=== PATIENT | female | born 1985 | race Caucasian/White ===

== ENCOUNTER 2018-11-05 06:00 | Inpatient (IN) | payer BC ==
[2018-10-31 12:37] VITALS: BMI 27.4
--- NOTE | 2018-11-02 12:30 | P.HPOB ---
History of Present Illness H&P Date: 11/02/18 Chief Complaint: Repeat C/S and tubal ligation This patient is a pleasant 33 yr old female who is presenting for repeat section and tubal ligation. is complicated by advanced maternal age, she has declined any genetic testing. She has been followed with growth ultrasounds and NSTs. Patient has had 2 previous c/s and desires repeat as well as permanent sterilization. Review of Systems Gastrointestinal: Reports heartburn Genitourinary: Reports Menstruation: Reports amenorrhea Past Medical History Past Medical History: No Reported History History of Any Multi-Drug Resistant Organisms: None Reported Past Surgical History: Adenoidectomy, Section, Tonsillectomy Additional Past Surgical History / Comment(s): COLONOSCOPY, LEEP of cervix. LIP SX X 4 TO REMOVE STRAWBERRY ARSLAN Past Anesthesia/Blood Transfusion Reactions: Postoperative Nausea & Vomiting (PONV) Past Psychological History: No Psychological Hx Reported Smoking Status: Never smoker Past Drug Use History: None Reported - Past Family History Mother Family Medical History: No Reported History Medications and Allergies Home Medications Medication Instructions Recorded Confirmed Type No Known Home Medications 10/31/18 10/31/18 History Allergies Allergy/AdvReac Type Severity Reaction Status Date / Time No Known Allergies Allergy Verified 10/31/18 12:34 Exam - OBG Physical Exam Abdomen: bowel sounds normal, no diffuse tenderness, no bruit present, no guarding noted, no hepatomegaly, no splenomegaly, no mass Vulva: both: normal Vagina: normal moisture, no discharge Cervix: no lesion (Cervix in the office is closed.), no discharge Uterus: enlarged (Fundal height is 40 cm.) Results labs: B positive, Rubella Immune, RPR and HIV non-reactive, Hep B negative, Glucola was normal. GBS was positive. Ultrasounds have been normal. Assessment and Plan Assessment: This is a pleasant 33 yr female 39 5/7 weeks gestation with previous section requesting repeat c/s and tubal ligation. I have discussed this surgery in detail including the fact that a tubal ligation is considered permanent. She understands the risks of surgery including: infection, bleeding, possible injury to bowel/bladder/vessels/ and or other organs. She understands the risk of PE/DVT. I discussed the failure rate of a tubal of <10/999 and 50% chance of ectopic if ever . All of the patients questions were answered and a written consent obtained. Plan is repeat section and bilateral partial salpingectomy. (1) 39 weeks gestation of Status: Acute Code(s): Z3A.39 - 39 WEEKS GESTATION OF SNOMED Code(s): 12617773 (2) Previous delivery affecting Status: Acute Code(s): O34.219 - MATERNAL CARE FOR UNSP TYPE SCAR FROM PREVIOUS DEL SNOMED Code(s): 120475772 (3) Elderly multigravida Status: Acute Code(s): O09.529 - SUPERVISION OF ELDERLY MULTIGRAVIDA, UNSPECIFIED TRIMESTER SNOMED Code(s): 844430530 (4) Group B streptococcal carriage complicating Status: Acute Code(s): O99.820 - STREPTOCOCCUS B CARRIER STATE COMPLICATING SNOMED Code(s): 335019502460338 (5) Family planning Status: Acute Code(s): Z30.09 - ENCOUNTER FOR OTH GENERAL CNSL AND ADVICE ON CONTRACEPTION SNOMED Code(s): 575856991
[2018-11-05] MEDS ORDERED: CITRIC ACID-SODIUM CITRATE 15 ML CUP PO ONE (06:10)
[2018-11-05] MEDS ORDERED: LACTATED RINGERS 1,000 ML IV SCH (06:10)
[2018-11-05] MEDS ORDERED: LACTATED RINGERS 1,000 ML IV ONE (06:10)
[2018-11-05 06:36] LABS: Basophils % (A) 0 %; Eosinophils # (A) 0.2 k/uL (0-0.7); Eosinophils % (A) 3 %; HCT 30.9 % (34.0-46.0); HGB 9.9 gm/dL (11.4-16.0); Hypochromasia Slight; Lymphocytes % (A) 26 %; MCH 25.9 pg (25.0-35.0); MCHC 31.9 g/dL (31.0-37.0); MCV 81.2 fL (80.0-100.0); Mean Platelet Volume 8.2; Monocytes # (A) 0.5 k/uL (0-1.0); Monocytes % (A) 7 %; Neutrophils # (A) 4.8 k/uL (1.3-7.7); Neutrophils % (A) 62 %; Platelet Count 294 k/uL (150-450); RBC 3.81 m/uL (3.80-5.40); WBC 7.7 k/uL (3.8-10.6)
[2018-11-05] MEDS ORDERED: ceFAZolin IN SWFI 2 GM/20 ML SYRINGE IVP ONE (07:16)
[2018-11-05] MEDS ORDERED: MORPHINE SULFATE (PF) 0.3 MG/0.3 ML SYR ONE (07:48)
[2018-11-05] MEDS ORDERED: NALBUPHINE 10 MG/ML (1 ML AMP) ONE (07:48)
[2018-11-05] MEDS ORDERED: DEXAMETHASONE SOD PHOS (MDV) 100 MG/10 ML VIAL ONE (07:48)
[2018-11-05] MEDS ORDERED: OXYTOCIN 10 UNIT/ML 1 ML VIAL ONE (07:48)
[2018-11-05] MEDS ORDERED: ONDANSETRON 4 MG/2 ML VIAL ONE (07:48)
[2018-11-05] MEDS ORDERED: KETOROLAC 30 MG/ML 1 ML VIAL ONE (07:48)
[2018-11-05] MEDS ORDERED: ePHEDrine SULFATE/0.9% NACL/PF 50 MG/5 ML SYRINGE IV ONE (07:48)
--- NOTE | 2018-11-05 08:40 | P.OP ---
Date of Procedure: 11/05/18 Preoperative Diagnosis: #1: 39-5/7 week . #2: Previous section desires repeat. #3: Multi parity desires permanent sterilization. #4: Elderly multipara para. Postoperative Diagnosis: Same Procedure(s) Performed: Repeat low transverse section and bilateral partial salpingectomy Anesthesia: spinal Surgeon: Armin Denney Obstetrics Tech #1: Raymon Noel Estimated Blood Loss (ml): 800 Pathology: other (Bilateral fallopian tube segments) Condition: stable Disposition: floor Indications for Procedure: Please see dictated H&P for intimate details of this patient's admission. Brief summary this is a pleasant 33-year-old 3 para 2 female 39-5/7 weeks gestation who is admitted to labor and delivery for elective repeat section and also requesting permanent sterilization. Patient understands a tubal ligation is permanent however it does have a failure rate of approximately 5 or less per thousand procedures done. Patient also understands surgery has risks including risks of infection, bleeding, possible injury bowel, bladder, vessels, and/or other organs. All the patient's questions are answered written consent obtained. Operative Findings: Vigorous viable male Apgars 9 and 9 delivery time was 0806 hrs. Description of Procedure: This patient has a Coelho catheter placed to straight drain. She subsequently taken to the operating room where she sat up and spinal anesthetic is administered without incident. With an adequate level of anesthesia she has abdominal prep and drape. Scalpels then taken the previous Pfannenstiel incision is incised. A second scalpel is taken down the fascia the fascia scored with a knife. Fascial incision is extended bilaterally using the Crooks scissors. Fascia is then dissected off the rectus muscles sharply. Rectus muscles are the peritoneum identified and entered sharply. Peritoneal incision extended superior and inferior without difficulty. Bladder blade is then placed. Scalpels then taken a low transverse uterine incision is then made. I enter the uterine cavity bluntly with a hemostat and there is loss of clear fluid. Uterine incision extended bluntly. The infant's head is then guided through the incision with fundal pressure delivered. Mouth and nares are bulb suctioned. There is no evidence of a nuchal cord. We then have deliver the rest of this 's body. This is a vigorous viable male Apgars 9 and 9 delivery time is 0806 hrs. After delivery of the infant the umbilical cord is doubly clamped and cut appears to be trivascular. The infant has spontaneous respirations and good cry and grossly appears normal Apgars are 9 and 9 delivery time is 0806 hrs. After delivery of the infant the placenta is manually extracted intact. Uterus is then externalized uterine incision demarcated with Modi clamps. Uterine cavity is explored and all debris is removed. Uterine incision closed in 0 Vicryl running locked fashion 2 layers excellent hemostasis is noted. Then turned my attention a left fallopian tube approximately 4 cm from the cornual insertion a small window made to the mesial salpinx with Bovie cautery. Using a 2-0 silk I doubly ligate a 2 cm segment of the left fallopian tube and is then excised and handed off to pathology. The tubal ends were also cauterized. Excellent hemostasis is noted. Then turned my attention of the right fallopian tube and using a similar technique with similar results. Final inspection shows excellent hemostasis. Uterus placed back into the abdomen and excess fluid is removed from the abdomen and pelvis. Parietal peritoneum was then closed using 0 Vicryl running fashion. Rectus muscles reapproximated Vicryl interrupted fashion. Fascia is then closed using 0 PDS. Fascial incision is intact and hemostatic. Subcutaneous tissues and closed using a 3-0 Vicryl. Skin is and closed using jacob. All counts are correct 3. There are no complications. and mother taken the birthing suite in satisfactory condition.
[2018-11-05] MEDS ORDERED: diphenhydrAMINE 25 MG CAP PO PRN (08:53)
[2018-11-05] MEDS ORDERED: ZOLPIDEM 5 MG TAB PO PRN (08:53)
[2018-11-05] MEDS ORDERED: diphenhydrAMINE 50 MG/ML 1 ML VIAL IVP PRN (08:53)
[2018-11-05] MEDS ORDERED: KETOROLAC 30 MG/ML 1 ML VIAL IVP PRN (08:53)
[2018-11-05] MEDS ORDERED: METOCLOPRAMIDE 5 MG/ML 2 ML VIAL IVP PRN (08:53)
[2018-11-05] MEDS ORDERED: ONDANSETRON 4 MG/2 ML VIAL IVP PRN (08:53)
[2018-11-05] MEDS ORDERED: OXYTOCIN 20 UNITS/1000 ML NS 1,000 ML IV SCH (08:53)
[2018-11-05] MEDS ORDERED: NALOXONE 0.4 MG/ML 1 ML VIAL IV PRN (08:53)
[2018-11-05] MEDS ORDERED: HYDROcodone/APAP 5-325MG 1 EACH TAB PO PRN (08:53)
[2018-11-05] MEDS ORDERED: LANOLIN CREAM 5 GM TUBE TOPICAL PRN (08:53)
[2018-11-05] MEDS: LACTATED RINGERS 1,000 ML IV SCH ×2 (09:07→13:00)
[2018-11-05] MEDS: SENNOSIDES-DOCUSATE SODIUM 1 EACH TAB PO SCH ×2 (10:01→20:32)
[2018-11-05 16:43] VITALS: RESP 16
[2018-11-06] MEDS: SIMETHICONE 80 MG CHEWABLE PO PRN ×2 (04:20→12:23)
--- NOTE | 2018-11-06 06:03 | P.PNOBGPC ---
Subjective - Subjective Patient reports: Reports appetite normal, Reports voiding normally, Reports pain well controlled, Reports ambulating normally : doing well Objective - Vital Signs Latest vital signs: Vital Signs Temp Pulse Resp BP Pulse Ox 11/06/18 04:00 97.6 F 77 16 103/62 99 11/05/18 23:44 98.2 F 67 16 95/48 11/05/18 20:00 98.4 F 73 16 101/55 98 11/05/18 16:00 90 16 121/65 97 11/05/18 13:00 14 11/05/18 11:45 98.8 F 91 14 116/65 95 11/05/18 10:36 98.0 F 84 16 115/60 100 11/05/18 10:06 90 16 113/57 100 11/05/18 09:36 88 16 139/69 99 11/05/18 09:21 76 16 120/63 99 11/05/18 09:06 78 16 122/58 99 11/05/18 08:51 74 16 136/62 99 11/05/18 08:36 98.1 F 77 16 121/82 96 11/05/18 06:14 97.6 F 90 14 120/73 Intake and Output 11/05/18 11/05/18 11/06/18 14:59 22:59 06:59 Intake Total 1000 Output Total 1200 3200 500 Balance -200 -3200 -500 Intake: IV 1000 Output: Urine 400 3200 500 Uretheral (Coelho) 1200 Estimated Blood Loss 800 Other: Voiding Method Indwelling Catheter # Voids 1 1 - Exam Lungs: bilateral: normal Chest: Normal S1, Normal S2 Extremities: Present: normal Abdomen: Present: normal appearance, soft. Absent: distention, tenderness Incision: Present: normal, dry, intact Uterus: Present: normal, firm - Labs Labs: Abnormal Lab Results - Last 24 Hours (Table) 11/05/18 Range/Units 06:20 Hgb 9.9 L (11.4-16.0) gm/dL Hct 30.9 L (34.0-46.0) % Assessment and Plan Assessment: Postoperative day #1. Patient is resting without complaints. Vital signs are stable she's afebrile. Uterus is firm nontender and she is having normal lochia. My impression this is a normal course. Plan is to encourage ambulation, check a CBC, continue regular diet, and allow the patient to shower. (1) 39 weeks gestation of Current Visit: No Status: Acute Code(s): Z3A.39 - 39 WEEKS GESTATION OF SNOMED Code(s): 39868600 (2) Previous delivery affecting Current Visit: No Status: Acute Code(s): O34.219 - MATERNAL CARE FOR UNSP TYPE SCAR FROM PREVIOUS DEL SNOMED Code(s): 402508933 (3) Elderly multigravida Current Visit: No Status: Acute Code(s): O09.529 - SUPERVISION OF ELDERLY MULTIGRAVIDA, UNSPECIFIED TRIMESTER SNOMED Code(s): 496414636 (4) Group B streptococcal carriage complicating Current Visit: No Status: Acute Code(s): O99.820 - STREPTOCOCCUS B CARRIER STATE COMPLICATING SNOMED Code(s): 136932093389607 (5) Family planning Current Visit: No Status: Acute Code(s): Z30.09 - ENCOUNTER FOR OTH GENERAL CNSL AND ADVICE ON CONTRACEPTION SNOMED Code(s): 594801814
[2018-11-06 07:42] LABS: Basophils % (A) 0 %; Eosinophils # (A) 0.1 k/uL (0-0.7); Eosinophils % (A) 1 %; Hypochromasia Moderate; Lymphocytes # (A) 1.8 k/uL (1.0-4.8); Lymphocytes % (A) 15 %; MCH 26.2 pg (25.0-35.0); Mean Platelet Volume 8.7; Monocytes # (A) 0.6 k/uL (0-1.0); Monocytes % (A) 5 %; Neutrophils # (A) 9.8 k/uL (1.3-7.7); Neutrophils % (A) 78 %; Platelet Count 214 k/uL (150-450); Poikilocytosis Slight; RBC 3.05 m/uL (3.80-5.40); RDW 13.9 % (11.5-15.5); WBC 12.4 k/uL (3.8-10.6)
[2018-11-06] MEDS: SENNOSIDES-DOCUSATE SODIUM 1 EACH TAB PO SCH ×2 (07:56→20:41)
--- NOTE | 2018-11-06 10:01 | P.PN ---
Progress Note - Text Date:[11/06] Time:[652am] Patient is status post []. Patient seen this morning with VAS score of [2]. c/o mild pruritus, no c/o nausea/vomiting, comfortable and doing well.
[2018-11-06] MEDS: IBUPROFEN 600 MG TAB PO PRN ×3 (10:49→23:12)
[2018-11-06] MEDS: ACETAMINOPHEN TAB 325 MG TAB PO PRN (19:46)
[2018-11-06] MEDS: LACTATED RINGERS 1,000 ML IV SCH (20:41)
[2018-11-07] MEDS: ACETAMINOPHEN TAB 325 MG TAB PO PRN (02:10)
[2018-11-07] MEDS: IBUPROFEN 600 MG TAB PO PRN (04:50)
--- NOTE | 2018-11-07 06:39 | P.PNOBGPC ---
Subjective - Subjective Patient reports: Reports appetite normal, Reports voiding normally, Reports pain well controlled, Reports ambulating normally : doing well Objective - Vital Signs Latest vital signs: Vital Signs Temp Pulse Resp BP Pulse Ox 11/07/18 00:00 98.1 F 69 16 99/57 11/06/18 16:00 98.0 F 90 16 113/71 11/06/18 08:00 97.5 F L 76 16 101/69 100 Intake and Output 11/06/18 11/06/18 11/07/18 14:59 22:59 06:59 Other: # Voids 1 1 1 # Bowel Movements 2 - Exam Lungs: bilateral: normal Chest: Normal S1, Normal S2 Extremities: Present: normal Abdomen: Present: normal appearance, soft. Absent: distention, tenderness Incision: Present: normal, dry, intact Uterus: Present: normal, firm - Labs Labs: Abnormal Lab Results - Last 24 Hours (Table) 11/06/18 Range/Units 06:58 WBC 12.4 H (3.8-10.6) k/uL RBC 3.05 L (3.80-5.40) m/uL Hgb 8.0 L D (11.4-16.0) gm/dL Hct 25.0 L (34.0-46.0) % Neutrophils # 9.8 H (1.3-7.7) k/uL Assessment and Plan Assessment: Postoperative day #2. Patient is resting without new complaints and wishes to go home. Hemoglobin yesterday was 8.0 which is appropriate drop from her preoperative hemoglobin of 9.9. I did start her on some iron and she states she is chronically anemic therefore asymptomatic at this time. Patient is tolerating regular diet, ambulating, urinating without difficulty. Incision is intact and dry. My impression is that this is a normal post operative course and chronic anemia. Patient does wish to go home as felt to be stable for discharge home if her baby today. (1) 39 weeks gestation of Current Visit: No Status: Acute Code(s): Z3A.39 - 39 WEEKS GESTATION OF SNOMED Code(s): 76149540 (2) Previous delivery affecting Current Visit: No Status: Acute Code(s): O34.219 - MATERNAL CARE FOR UNSP TYPE SCAR FROM PREVIOUS DEL SNOMED Code(s): 617707051 (3) Elderly multigravida Current Visit: No Status: Acute Code(s): O09.529 - SUPERVISION OF ELDERLY MULTIGRAVIDA, UNSPECIFIED TRIMESTER SNOMED Code(s): 544414580 (4) Group B streptococcal carriage complicating Current Visit: No Status: Acute Code(s): O99.820 - STREPTOCOCCUS B CARRIER STATE COMPLICATING SNOMED Code(s): 243212013101104 (5) Family planning Current Visit: No Status: Acute Code(s): Z30.09 - ENCOUNTER FOR OT GENERAL CNSL AND ADVICE ON CONTRACEPTION SNOMED Code(s): 776193968
--- NOTE | 2018-11-07 06:45 | P.DS ---
Providers Date of admission: 11/05/18 06:00 Expected date of discharge: 11/07/18 Attending physician: Armin Denney Primary care physician: Ingrid Dunham - Discharge Diagnosis(es) (1) 39 weeks gestation of Current Visit: No Status: Acute (2) Previous delivery affecting Current Visit: No Status: Acute (3) Elderly multigravida Current Visit: No Status: Acute (4) Group B streptococcal carriage complicating Current Visit: No Status: Acute (5) Family planning Current Visit: No Status: Acute Hospital Course: Please see dictated H&P for intimate details of this patient's admission. Brief summary this pleasant 33-year-old 3 para 2 female 39-5/7 weeks gestation admitted for elective repeat section and also requesting permanent sterilization. Patient undergoes above-named surgery. On postoperative day #2 patient wishes to go home was felt be stable for discharge home follow up with me in 1 week. Procedures: Repeat section and bilateral partial salpingectomy Patient Condition at Discharge: Good Plan - Discharge Summary Discharge Rx Participant: Yes New Discharge Prescriptions: New Ibuprofen [Motrin] 600 mg PO Q6HR PRN #30 tab PRN Reason: Mild Pain Or Fever >= 100.5 Iron Ag/C/B12/Ca/Suc.acid/Stom [Multigen] 1 each PO DAILY #30 tab HYDROcodone/APAP 5-325MG [[place] 5-325] 2 each PO Q4HR PRN #36 tab PRN Reason: Moderate Pain No Action Pnv,Calcium 72/Iron/Folic Acid [ Plus Tablet] 1 tab PO DAILY Discharge Medication List Pnv,Calcium 72/Iron/Folic Acid [ Plus Tablet] 1 tab PO DAILY 11/05/18 [History] HYDROcodone/APAP 5-325MG [[place] 5-325] 2 each PO Q4HR PRN #36 tab 11/07/18 [Rx] Ibuprofen [Motrin] 600 mg PO Q6HR PRN #30 tab 11/07/18 [Rx] Iron Ag/C/B12/Ca/Suc.acid/Stom [Multigen] 1 each PO DAILY #30 tab 11/07/18 [Rx] Follow up Appointment(s)/Referral(s): Armin Denney MD [STAFF PHYSICIAN] - 11/13/18 1:30 pm (Patient also has a visit on December 19 at 10:45 AM.) Patient Instructions/Handouts: (DC) Activity/Diet/Wound Care/Special Instructions: No heavy lifting or strenuous activity for 6 weeks. Please call if any fever, chills, excessive vaginal bleeding, and/or abdominal pain. Discharge Disposition: HOME SELF-CARE
[2018-11-07 08:16] VITALS: BP 107/66; PULSE 70; TEMP 97.5
[2018-11-07] MEDS ORDERED: IRON AG/C/B12/CA/SUC.ACID/STOM 1 EACH TAB PO SCH (09:00)
== END 2018-11-07 10:25 | disposition home or self-care (01) | DRG 785 ==
LOC: 4FBP 06:00
PROVIDERS: ADMIT Obstetrics & Gynecology; ATTEND Obstetrics & Gynecology
DX: O34.211 Maternal care for low transverse scar from previous cesarean delivery (principal); D64.9 Anemia, unspecified; O99.824 Streptococcus B carrier state complicating childbirth; O99.02 Anemia complicating childbirth; O26.893 Other specified pregnancy related conditions, third trimester; Z30.2 Encounter for sterilization; Z37.0 Single live birth; Z3A.39 39 weeks gestation of pregnancy; Z90.89 Acquired absence of other organs
CPT/HCPCS: 85025; 86850; 86900; 86901; 88302

== ENCOUNTER 2021-05-28 06:30 | Day surgery (SDC) | payer BC ==
--- NOTE | 2021-05-27 07:21 | P.HPOB ---
History of Present Illness H&P Date: 05/27/21 Chief Complaint: Menorrhagia. This patient is a pleasant 35-year-old 3 para 3 female who presented to me with complaints of heavy menstrual bleeding. Patient also had significant anemia. Patient had an ultrasound ordered which was normal and I did place her on iron therapy. We discussed options for controlling her menorrhagia and she does not want hormonal therapy and is requesting endometrial ablation for treatment. Review of Systems Genitourinary: Reports as per HPI, Reports menorrhagia Past Medical History Past Medical History: No Reported History History of Any Multi-Drug Resistant Organisms: None Reported Past Surgical History: Adenoidectomy, Section, Tonsillectomy, Tubal Ligation Additional Past Surgical History / Comment(s): COLONOSCOPY, LEEP of cervix, LIP SURGERY X 4 TO REMOVE STRAWBERRY ARSLAN, Section X3. Past Anesthesia/Blood Transfusion Reactions: No Reported Reaction, Postoperative Nausea & Vomiting (PONV) Additional Past Anesthesia/Blood Transfusion Reaction / Comment(s): Father PONV. Past Psychological History: No Psychological Hx Reported Smoking Status: Never smoker Past Alcohol Use History: None Reported, Rare Past Drug Use History: None Reported - Past Family History Mother Family Medical History: No Reported History Medications and Allergies Home Medications Medication Instructions Recorded Confirmed Type Ferrous Sulfate [Iron] 325 mg PO DAILY 05/26/21 05/26/21 History Allergies Allergy/AdvReac Type Severity Reaction Status Date / Time No Known Allergies Allergy Verified 05/26/21 10:09 Exam - OBG Physical Exam Abdomen: bowel sounds normal, no diffuse tenderness, no bruit present, no guarding noted, no hepatomegaly, no splenomegaly, no mass Vulva: both: normal Vagina: normal moisture, no discharge Uterus: normal size, normal contour Results Transvaginal ultrasound shows a normal uterus with endometrium of 14 mm. Assessment and Plan Assessment: This is a pleasant 35-year-old 3 para 3 female with long-standing menorrhagia requesting endometrial ablation for treatment. Plan is hysteroscopy, dilation and curettage, and NovaSure endometrial ablation. The patient and I discussed the surgery in detail including risks of infection, bleeding, possible uterine perforation, and/or thermal injury. All the patient's questions are answered and a written consent is obtained. (1) Menorrhagia Status: Chronic Code(s): N92.0 - EXCESSIVE AND FREQUENT MENSTRUATION WITH REGULAR CYCLE SNOMED Code(s): 888605384
[~2021-05-28 06:30] MED LIST: DEXAMETHASONE SOD PHOSPHATE 4 MG/ML 1 ML VIAL IV ONE; MIDAZOLAM 2 MG/2 ML VIAL IV PRN; ONDANSETRON 4 MG/2 ML VIAL IVP ONE; Pre Op ABX Message 1 EACH MISC MISCELLANE ONE; SCOPOLAMINE 1.5MG/72HR PATCH TRANSDERM ONE
[2021-05-28] MEDS ORDERED: HYDROmorphone 0.5 MG/0.5 ML SYRINGE IVP PRN (07:00)
[2021-05-28] MEDS ORDERED: LIDOCAINE 1% (10MG/ML) FOR IV START INTRADERMA ONE (07:05)
[2021-05-28] MEDS: LACTATED RINGERS 1,000 ML IV SCH ×2 (07:09→07:24)
[2021-05-28] MEDS ORDERED: MIDAZOLAM 2 MG/2 ML VIAL ONE (07:20)
[2021-05-28] MEDS ORDERED: .fentaNYL (PF) 50 MCG/ML 2 ML AMP ONE (07:20)
[2021-05-28] MEDS ORDERED: PROPOFOL 10 MG/ML 20 ML VIAL IV ONE (07:20)
[2021-05-28] MEDS ORDERED: KETOROLAC 15 MG/ML 1 ML VIAL ONE (07:20)
--- NOTE | 2021-05-28 08:01 | P.OP ---
Date of Procedure: 05/28/21 Preoperative Diagnosis: Menorrhagia Postoperative Diagnosis: Same Procedure(s) Performed: #1: Hysteroscopy. #2: Dilation and curettage. #3: NovaSure endometrial ablation. Anesthesia: MAC Surgeon: Armin Denney Estimated Blood Loss (ml): 20 Urine output (ml): 20 Pathology: other (Uterine curettings) Condition: stable Disposition: PACU Indications for Procedure: Please see dictated H&P for intimate details of this patient's admission. In brief summary this is a pleasant 35-year-old multiparous patient who presents for endometrial ablation secondary to menorrhagia. Patient I have discussed this procedure and risks and risks of infection, bleeding, possible uterine perforation, and/or thermal injury. All the patient's questions are answered and a written consent obtained. Operative Findings: This patient had a normal-appearing endometrial cavity. Description of Procedure: This patient is taken to the operating room where she is laid in the supine position. She subsequently undergoes general mask anesthesia without incident. With adequate level of anesthesia was placed in dorsal lithotomy position. She has a vaginal, perineal, and prep and drape. Examination under anesthesia shows a severely retroverted uterus of normal size. Weighted speculum was placed in the posterior vagina. The bladder is drained for 20 mL of clear urine. I grasped the anterior lip of cervix with an Allis clamp. This time the uterus is sounded to 8.5 cm retroverted. Serial dilation is done to allow the hysteroscope easily and the uterine cavity. Hysteroscopy is performed uterine cavity appears normal. There is no evidence of polyps, fibroids or other growths. The cavity length was measured at 6.0 cm. With this completed the NovaSure device is then opened. Cervix is dilated more to allow a small sharp curette easily uterine cavity and a gentle but thorough 4 quadrant curettage is done. With this completed the NovaSure device is then seated in place it is set at a length of 6 cm and opened up to a width of 4.3 cm. After passing the cavity integrity test, it is enabled for 142 W setting for 86 seconds. The NovaSure device is then removed. Hysteroscopy is performed again and the cavity appears to be completely ablated up to the endocervix. Good results were noted. This point the procedure is ended. The Allis clamp and weighted speculum removed. All counts are correct 3. There are no complications. Patient is awakened from anesthesia and taken recovery room in satisfactory condition.
[2021-05-28 08:06] VITALS: TEMP 96.9
[2021-05-28 08:14] VITALS: RESP 16
[2021-05-28 09:11] VITALS: BP 108/75; PULSE 70
== END 2021-05-28 09:35 | disposition home or self-care (01) ==
LOC: OR 06:30
PROVIDERS: ATTEND Obstetrics & Gynecology
DX: N92.0 Excessive and frequent menstruation with regular cycle (principal)
CPT/HCPCS: 58558; 81025; 88305; J2250; J1100; J2405; J3010; J1885; J2704

== ENCOUNTER → 2024-09-16 | Outpatient (CLI) | payer BC ==
--- NOTE | 2024-09-16 09:03 | MM ---
Reason for Exam: Screening (asymptomatic). Baseline mammogram. Patient History: Menarche at age 13. First Full-Term at age 25. Patient has history of breast feeding. Patient used Hormonal Contraceptives for 9 years. Last menstrual period: 08/26/2024 Risk Values: Mary 5 year model risk: 0.6%. NCI Lifetime model risk: 10.2%. Prior Study Comparison: Patient's first Mammogram. Tissue Density: The breasts are extremely dense, which lowers the sensitivity of mammography. Findings: Analyzed By CAD. There is no suspicious group of microcalcifications or new suspicious mass in either breast. Overall Assessment: Negative, BI-RAD 1 Management: Screening Mammogram of both breasts in 1 year. . Patient should continue monthly self-breast exams. A clinical breast exam by your physician is recommended on an annual basis. This exam should not preclude additional follow-up of suspicious palpable abnormalities. Note on Mary scores and lifetime risk: 1. A Mary score greater than 3% is considered moderate risk. If this is the case, consider specialist referral to assess eligibility for a risk reducing agent. 2. If overall lifetime risk for the development of breast cancer is 20% or higher, the patient may qualify for future screening with alternating mammogram and breast MRI. [facility], , 09/16/2024 8:59 AM. Electronically signed and approved by: Kory Agrawal M.D. [facility]
== END | disposition home or self-care (01) ==
LOC: RADMAMWWP 08:37
PROVIDERS: ATTEND Obstetrics & Gynecology
DX: Z12.31 Encounter for screening mammogram for malignant neoplasm of breast (principal); R92.343 Mammographic extreme density, bilateral breasts; Z92.0 Personal history of contraception
CPT/HCPCS: 77063; 77067